=== PATIENT | female | born 1970 | race Two or more races ===

== ENCOUNTER 2024-10-27 10:44 | Outpatient (CLI) | payer OTHER ==
[~2024-10-27 10:44] MED LIST: GLUMETZA1000 MG PO; LASIX20 MG PO; ZESTRIL5 MG PO
[2024-10-27 11:09] LABS: PH,URINE 7.5 (5.0-8.0); URINE APPEARANCE Clear; URINE BILIRRUBIN Negative (NEGATIVE); URINE BLOOD Negative; URINE COLOR Yellow; URINE KETONE Negative (NEGATIVE); URINE LEUKOCYTE Negative; URINE NITRATE Negative; URINE UROBILINOGEN 0.2 E.U./dl
[2024-10-27 11:12] LABS: URINE BACTERIA 194.5 uL (0.0-1933); URINE EPITHELIAL CELLS 28.9 uL (0.0-38.8); URINE RBC 18.4 uL (0.0-20.8); URINE WBC 17.7 uL (0.0-23.2)
[2024-10-27 11:17] LABS: HEMATOCRIT 31.9 % (36.0-45.00); HEMOGLOBIN 10.4 g/dL (12.0-15.00); MEAN CELL VOLUME 88.7 fL (80.00-100.00); MEAN CORPUSCULAR HGB CONC 32.7 g/dl (32.0-36.0); PLATELET COUNT 218 K/uL (150-450); RED CELL DISTRIBUTION WIDTH 15.5 % (11.5-14.5)
[2024-10-27 11:30] LABS: CREATININE URINE RANDOM 36.9 MG/DL (30-125)
[2024-10-27 11:31] LABS: URINE CAST 1.17 uL (0.0-1.40); URINE GLUCOSE 100 MG/DL (NEGATIVE); URINE PROTEIN 300 (NEGATIVE)
[2024-10-27 11:48] LABS: ALBUMIN 3.2 gm/dL (3.4-5.0); BILIRUBIN TOTAL 0.67 mg/dL (0.3-1.2); CALCIUM 9.5 mg/dL (8.5-10.1); CREATININE SERUM 2.82 mg/dL (0.55-1.02); GFR 17.47; GLOBULINA 3.7 G/DL (2.4-3.5); POTASSIUM 4.34 mEq/L (3.5-5.1); TOTAL PROTEIN 6.9 gm/dL (6.4-8.2)
== END 2024-10-27 10:45 | disposition home or self-care (01) ==
LOC: LAB 10:44
PROVIDERS: ATTEND Naturopath
DX: N18.9 Chronic kidney disease, unspecified (principal)

== ENCOUNTER 2025-02-12 13:21 | Outpatient (CLI) | payer OTHER | END 2025-02-12 13:27 | disposition home or self-care (01) | LOC: RAD 13:21 | PROVIDERS: ATTEND General Practice | DX: R05.9 Cough, unspecified (principal); N18.4 Chronic kidney disease, stage 4 (severe) ==

== ENCOUNTER → 2025-02-19 09:00 | Outpatient (CLI) | payer OTHER ==
[2025-02-19 09:51] LABS: BASO % 0.7 % (0.1-1.2); EOS # 0.07 (0.04-0.54); EOS % 1.7 % (0.7-7.0); LYMPH # 1.15 (1.18-3.74); LYMPH % 27.8 % (19.3-53.1); MEAN CORPUSCULAR HEMOGLOBIN 29.6 pg (25.6-32.2); MONO # 0.51 (0.24-0.82); NEUT # 2.36 (1.56-6.13); NEUT % 57.3 % (34.0-71.1); PLATELET COUNT 174 K/uL (163-369); RED BLOOD COUNT 2.53 M/uL (3.93-5.22)
[2025-02-19 09:57] LABS: URINE APPEARANCE Cloudy; URINE BILIRRUBIN Negative (NEGATIVE); URINE BLOOD Trace; URINE COLOR Yellow; URINE KETONE Negative (NEGATIVE); URINE LEUKOCYTE Small; URINE NITRATE Negative; URINE UROBILINOGEN 0.2 E.U./dl
[2025-02-19 10:01] LABS: URINE EPITHELIAL CELLS 111.3 uL (0.0-38.8); URINE RBC 3.5 uL (0.0-20.8); URINE WBC 285.2 uL (0.0-23.2)
[2025-02-19 10:09] LABS: HEMATOCRIT 23.3 % (34.1-44.9); HEMOGLOBIN 7.5 g/dL (11.2-15.7); MONO % 12.3 % (4.7-12.5)
[2025-02-19 10:41] LABS: URINE BACTERIA > 9821.5 uL (0.0-1933); URINE GLUCOSE 100 MG/DL (NEGATIVE); URINE PROTEIN 300 (NEGATIVE)
[2025-02-19 10:42] LABS: URINE CRYSTALS FEW /HPF
[2025-02-19 10:49] LABS: ALBUMIN 3.1 gm/dL (3.4-5.0); BILIRUBIN TOTAL 0.5 mg/dL (0.3-1.2); GFR 11.76; PHOSPHOROUS 4.4 mg/dL (2.5-4.9); POTASSIUM 4.17 mEq/L (3.5-5.1); TOTAL PROTEIN 6.1 gm/dL (6.4-8.2)
[2025-02-19 10:50] LABS: CREATININE SERUM 3.96 mg/dL (0.55-1.02)
[2025-02-19 12:02] LABS: CORTISOL 12.58 ug/dl
== END | disposition home or self-care (01) ==
LOC: LAB 09:00
PROVIDERS: ATTEND General Practice
DX: N18.9 Chronic kidney disease, unspecified (principal); D63.1 Anemia in chronic kidney disease; Z13.29 Encounter for screening for other suspected endocrine disorder; D13.1 Benign neoplasm of stomach; N18.4 Chronic kidney disease, stage 4 (severe); I12.9 Hypertensive chronic kidney disease with stage 1 through stage 4 chronic kidney disease, or unspecified chronic kidney disease; E11.21 Type 2 diabetes mellitus with diabetic nephropathy; R80.9 Proteinuria, unspecified; O63.1 Prolonged second stage (of labor)

== ENCOUNTER 2025-03-19 09:19 | Outpatient (CLI) | payer OTHER ==
[2025-03-19 10:27] LABS: BASO % 1.1 % (0.1-1.2); EOS # 0.13 (0.04-0.54); EOS % 2.9 % (0.7-7.0); LYMPH # 1.23 (1.18-3.74); LYMPH % 27.6 % (19.3-53.1); MEAN PLATELET VOLUME 11.00 fl (9.4-12.4); MONO # 0.54 (0.24-0.82); NEUT # 2.50 (1.56-6.13); NEUT % 56.1 % (34.0-71.1); RED CELL DISTRIBUTION WIDTH 13.3 % (11.6-14.4)
[2025-03-19 10:47] LABS: MONO % 12.1 % (4.7-12.5)
[2025-03-19 11:11] LABS: FE 89.0 ug/dl (50-170)
[2025-03-19 13:11] LABS: FOLIC ACID > 20.00 ng/ml (4.78-20)
== END 2025-03-19 09:24 | disposition home or self-care (01) ==
LOC: LAB 09:19
DX: D50.8 Other iron deficiency anemias (principal); D53.1 Other megaloblastic anemias, not elsewhere classified